=== PATIENT | male | born 1970 | race Caucasian/White ===

== ENCOUNTER 2016-08-10 19:42 | Emergency (ER) | payer MEDICAID ==
[~2016-08-10] VITALS: Ht 180.3 cm; Wt 84.5 kg
[2016-08-10 20:20] VITALS: Ht 180.3 cm; Wt 84.5 kg
--- NOTE | 2016-08-10 22:03 | RADRPT ---
PROCEDURE: CT Head without. CLINICAL INDICATION: Headaches status post fall. TECHNIQUE: The study was performed utilizing a multi-slice, multidetector CT scanner. Direct spira l 1 mm axial sections were obtained through the head without the use of intravenous contrast materia l. 1 or more of the following dose reduction techniques were utilized: Automated exposure control, adjustment of the mA and/or kV according to patient's size, iterative reconstruction technique. Co lacey and sagittal reformations were obtained. The images were reviewed on a PACS workstation. RADIATION DOSE: CTDIvol: 45.0 mGyDLP: 720.2 mGy-cm COMPARISON: No prior studies are available for comparison. FINDINGS: There is no intracranial hemorrhage, extra-axial fluid collection, mass lesion, midline shift or hyd rocephalus. The ventricles, sulci and cisterns are within normal limits. The white matter is unrem arkable. The fraire-white matter differentiation is preserved. The basal cisterns are patent. The m idline structures are intact. The orbits, calvarium and extracranial soft tissues are normal in daniella earance. The visualized paranasal sinuses, mastoid air cells and middle ear cavities are normally ae rated. There is pneumatization of the bilateral petrous apices without evidence of inflammatory mcbride ges, normal variant. IMPRESSION: 1. No acute intracranial abnormality. No intracranial hemorrhage, extra-axial fluid collection, ma ss lesion or hydrocephalous. RPTAT: HGAS .Seb Aguilera MD, Date Time Electronically viewed and signed by .Seb Aguilera MD, on 08/10/2016 22:03 .S/
--- NOTE | 2016-08-10 22:21 | ERD ---
ER Documentation Chief Complaint Date/Time DATE: 08/10/16 TIME: 22:18 Chief Complaint Facial injury d/t fall HPI This 46-year-old male presents to the emergency room for evaluation of a ground- level fall. This patient did fall and hit his head. No loss of consciousness. The patient denies being on any blood thinners. It was brought to the emergency room for further evaluation. The patient states that he is normally in a wheelchair, slipped forward. ROS All systems reviewed and are negative except as per history of present illness. Medications Home Meds No Active Prescriptions or Reported Meds Allergies Allergies: Coded Allergies: No Known Allergy (Unverified , 08/10/16) PMhx/Soc Hx Miscellaneous Medical Probl: Yes (DM) Hx Alcohol Use: No Hx Substance Use: No Hx Tobacco Use: No Smoking Status: Never smoker Physical Exam Vitals Vital Signs Date Time Temp Pulse Resp B/P Pulse Ox O2 Delivery O2 Flow Rate FiO2 08/10/16 20:20 97.5 110 20 95/64 95 Physical Exam INITIAL VITAL SIGNS: Reviewed by me GENERAL: The patient is well developed and appropriate for usual state of health in no apparent distress HEENT: 1.5 cm laceration over the right orbital ridge pupils equal, round, and reactive to light. EOMI. There is no scleral icterus. NECK: C-spine is soft and supple, there is no meningismus. There is no cervical lymphadenopathy. LUNGS: Clear to auscultation bilaterally. There are no rales, wheezes or rhonchi. HEART: Regular rate and rhythm, no murmurs, clicks, rubs or gallops. ABDOMEN: Soft, non-tender, non-distended. There are bowel sounds in all four quadrants. No rebound or guarding. EXTREMITIES: There is no peripheral cyanosis or edema. No focal swelling or erythema. NEUROLOGICAL: The patient moves all four extremities with 5/5 strength. Cranial nerves II - XII are intact. Normal gait. Alert and oriented SKIN: There is no apparent rash or petechiae. HEME/LYMPHATIC: There is no evidence of excessive bruising or lymphedema. PSYCHIATRIC: The patient does not appear anxious or depressed. Procedures/MDM CT head without: 1. No acute intracranial abnormality. No intracranial hemorrhage, extra-axial fluid collection, mass lesion or hydrocephalous. Laceration Repair by me: Anesthesia: None Location: Right orbital ridge Tendon/Joint/Nerves: No injury Foreign body: None detected after copious irrigation and exploration Technique: Dermabond Complexity: No subcutaneous sutures/mucosal repair/edge excision Post Closure Length: 1.5cm Patient's bleeding was easily controlled in the department and there is no indication of anemia. No evidence of compartment syndrome, neurologic injury, vascular injury, open joint, tendon laceration, or foreign body. Patient is appropriate for outpatient follow up. 48 hour wound check. Scar minimization instructions given. This 46-year-old male presents to the ER for evaluation of a superficial laceration to his head. The patient did have a ground-level fall. No loss of consciousness. He is alert oriented to person place and time, CAT scans normal. The patient had his wounds are irrigated and he does have a small laceration. The laceration was closed with Dermabond. He was advised to follow -up in 48 hours for reevaluation he verbalized understanding. Patient was also given tetanus shot here in the emergency room. Patient will be discharged into the care of his family at this time Departure Diagnosis: Primary Impression: Facial laceration Additional Impression: Closed head injury Condition: Stable LEXI PORTILLO DO Aug 10, 2016 22:20
[2016-08-10] MEDS ORDERED: DIPHTH/TET/ACEL PERTUSS (ADULT) 0.5 ML VIAL IM* ONE (22:30)
== END 2016-08-10 23:14 | disposition home or self-care (01) ==
LOC: E/R 19:42
DX: S01.111A Laceration without foreign body of right eyelid and periocular area, initial encounter (principal); E11.9 Type 2 diabetes mellitus without complications; S09.90XA Unspecified injury of head, initial encounter; W01.10XA Fall on same level from slipping, tripping and stumbling with subsequent striking against unspecified object, initial encounter; Y92.9 Unspecified place or not applicable; Z23 Encounter for immunization
CPT/HCPCS: 12011; 70450; 90471; 90715; Z7502